=== PATIENT | female | born 1945 ===

== ENCOUNTER 2021-07-13 06:00 | Observation (INO) ==
[2021-07-13] MEDS ORDERED: ceFAZolin 1,000 MG VIAL ONE (06:43)
[2021-07-13] MEDS ORDERED: BUPIVACAINE MPF 0.25% 30 ML VIAL ONE (06:43)
[2021-07-13] MEDS ORDERED: TISSUE ADHESIVE 1 EACH APPLICATOR TOP ONE (06:43)
[2021-07-13] MEDS ORDERED: LIDOCAINE 1%/EPI INJ 20 ML VIAL ONE (06:43)
[2021-07-13] MEDS ORDERED: fentaNYL 100 MCG/2 ML VIAL ONE ×2 (06:48→08:53)
[2021-07-13] MEDS ORDERED: MIDAZOLAM 2 MG/2 ML VIAL ONE (06:48)
[2021-07-13] MEDS ORDERED: DEXAMETHASONE 4 MG/1 ML VIAL ONE (06:51)
[2021-07-13] MEDS ORDERED: ROPIVACAINE 0.5% 30 ML VIAL ONE (06:52)
[2021-07-13] MEDS ORDERED: LIDOCAINE 1% 5 ML VIAL ONE (06:52)
[2021-07-13] MEDS ORDERED: propofoL 200 MG/20 ML VIAL IV ONE (07:53)
[2021-07-13] MEDS ORDERED: ROCURONIUM 50 MG/5 ML VIAL IV ONE (07:53)
[2021-07-13] MEDS ORDERED: LIDOCAINE 2% 5 ML VIAL ONE (07:53)
[2021-07-13] MEDS ORDERED: SEVOFLURANE 1 UNIT/15 MINUTE INH ONE ×10 (07:53→10:39)
[2021-07-13] MEDS ORDERED: PHENYLEPHRINE 1 MG/10 ML SYRINGE IV ONE (08:53)
[2021-07-13] MEDS ORDERED: ONDANSETRON 4 MG/2 ML VIAL ONE ×2 (10:03→10:33)
[2021-07-13] MEDS: LACTATED RINGERS 1,000 ML IV SCH (10:30)
[2021-07-13] MEDS ORDERED: ONDANSETRON 4 MG/2 ML VIAL IV PRN (10:36)
[2021-07-13] MEDS ORDERED: HYDROmorphone 2 MG/1 ML VIAL IV PRN (10:36)
[2021-07-13] MEDS ORDERED: ACETAMINOPHEN 325 MG TABLET PO PRN (12:18)
[2021-07-13] MEDS: HYDROmorphone 2 MG/1 ML VIAL IV PRN ×3 (12:38→23:14)
[2021-07-13] MEDS: ceFAZolin 2,000 MG/50 ML DUPLEX IV SCH (18:00)
[2021-07-13] MEDS: ONDANSETRON 4 MG/2 ML VIAL IV PRN (21:25)
[2021-07-14] MEDS: ceFAZolin 2,000 MG/50 ML DUPLEX IV SCH (02:38)
[2021-07-14] MEDS: HYDROmorphone 2 MG/1 ML VIAL IV PRN (05:30)
[2021-07-14 05:54] LABS: Basophils % 0.2 % (0.0-0.8); Eosinophils % 0.6 % (0.00-10.9); Hematocrit 26.8 VOL% (35.7-47.0); Hemoglobin 8.3 GM/DL (12.0-16.0); Immature Granulocytes % 0.2 %; Immature Granulocytes Absolute 0.01 #; Lymphocytes % 15.1 % (21.3-54.2); Mean Corpuscular Volume 103.5 FL (87-102); Mean Platelet Volume 10.1 FL (9.6-12.0); Monocytes % 13.4 % (1.7-12.7); Neutrophils % 70.5 % (38.7-73.9); Platelet Count 198 T/CUMM (130-400); Red Blood Count 2.59 MC/CUMM (3.8-5.5); Red Cell Distribution Width 15.8 % (9.3-17.3); White Blood Count 6.5 T/CUMM (4-12)
[2021-07-14 06:24] LABS: Calcium 8.6 MG/DL (8.5-10.1); Osmolality,Calculated 284.3 MOS/KG (273-304); Potassium 4.1 MMOL/L (3.5-5.1)
[2021-07-14] MEDS: ONDANSETRON 4 MG/2 ML VIAL IV PRN ×2 (08:59→10:31)
[2021-07-14] MEDS ORDERED: CALCIUM (CARBONATE)/VITAMIN D 500 MG-200 UNIT TABLET PO SCH (09:00)
[2021-07-14] MEDS: ASPIRIN CHEW 81 MG TABLET PO SCH (10:21)
[2021-07-14] MEDS: MAGNESIUM OXIDE 400 MG TABLET PO SCH (10:21)
[2021-07-14] MEDS: hydroCHLOROthiazide 25 MG TABLET PO SCH ×2 (10:21→21:37)
[2021-07-14] MEDS: POTASSIUM CHLORIDE 10 MEQ TABLET PO SCH ×2 (10:21→21:37)
[2021-07-14] MEDS: GABAPENTIN 100 MG CAPSULE PO SCH ×3 (10:21→21:36)
[2021-07-14] MEDS: SIMVASTATIN 20 MG TABLET PO SCH (10:22)
[2021-07-14] MEDS: LOSARTAN 50 MG TABLET PO SCH (10:23)
[2021-07-14] MEDS: MULTIVITAMIN (BEROCCA) TABLET PO SCH (10:23)
[2021-07-14] MEDS: LACTATED RINGERS 1,000 ML IV SCH (17:13)
[2021-07-14] MEDS ORDERED: amLODIPine 10 MG TABLET PO SCH (19:00)
[2021-07-14] MEDS ORDERED: MONTELUKAST 10 MG TABLET PO SCH (21:00)
[2021-07-14] MEDS: CALCIUM (CARBONATE)/VITAMIN D 600 MG-400 UNIT TABLET PO SCH (21:36)
[2021-07-15 07:54] LABS: Basophils % 0.3 % (0.0-0.8); Eosinophils # 0.3 10*3/uL (0.0-0.87); Eosinophils % 4.1 % (0.00-10.9); Hemoglobin 6.8 GM/DL (12.0-16.0); Immature Granulocytes % 0.3 %; Immature Granulocytes Absolute 0.02 #; Lymphocytes # 0.8 10*3/uL (1.4-4.0); Lymphocytes % 11.3 % (21.3-54.2); Mean Corpuscular HGB Conc 30.9 GM/DL (32-36); Mean Corpuscular Volume 102.3 FL (87-102); Mean Platelet Volume 10.2 FL (9.6-12.0); Monocytes % 9.3 % (1.7-12.7); Neutrophils % 74.7 % (38.7-73.9); Platelet Count 175 T/CUMM (130-400); Red Blood Count 2.15 MC/CUMM (3.8-5.5); Red Cell Distribution Width 15.7 % (9.3-17.3); White Blood Count 6.8 T/CUMM (4-12)
[2021-07-15] MEDS: POTASSIUM CHLORIDE 10 MEQ TABLET PO SCH (08:56)
[2021-07-15] MEDS: ASPIRIN CHEW 81 MG TABLET PO SCH (08:56)
[2021-07-15] MEDS: LOSARTAN 50 MG TABLET PO SCH (08:57)
[2021-07-15] MEDS: GABAPENTIN 100 MG CAPSULE PO SCH ×2 (08:57→14:54)
[2021-07-15] MEDS: hydroCHLOROthiazide 25 MG TABLET PO SCH (08:57)
[2021-07-15] MEDS: MAGNESIUM OXIDE 400 MG TABLET PO SCH (08:57)
[2021-07-15] MEDS: SIMVASTATIN 20 MG TABLET PO SCH (08:57)
[2021-07-15] MEDS: CALCIUM (CARBONATE)/VITAMIN D 600 MG-400 UNIT TABLET PO SCH (08:57)
[2021-07-15] MEDS ORDERED: SODIUM CHLORIDE 0.9% 1,000 ML IV PRN (08:58)
[2021-07-15] MEDS: MULTIVITAMIN (BEROCCA) TABLET PO SCH (09:03)
[2021-07-15 15:57] LABS: Basophils % 0.4 % (0.0-0.8); Eosinophils # 0.3 10*3/uL (0.0-0.87); Eosinophils % 4.5 % (0.00-10.9); Hematocrit 28.1 VOL% (35.7-47.0); Immature Granulocytes % 0.4 %; Immature Granulocytes Absolute 0.03 #; Lymphocytes # 0.9 10*3/uL (1.4-4.0); Lymphocytes % 13.2 % (21.3-54.2); Mean Corpuscular HGB Conc 31.3 GM/DL (32-36); Mean Corpuscular Volume 102.6 FL (87-102); Mean Platelet Volume 10.2 FL (9.6-12.0); Monocytes % 9.8 % (1.7-12.7); Neutrophils % 71.7 % (38.7-73.9); Platelet Count 186 T/CUMM (130-400); Red Blood Count 2.74 MC/CUMM (3.8-5.5); Red Cell Distribution Width 16.4 % (9.3-17.3)
[2021-07-15 15:59] LABS: Hemoglobin 8.8 GM/DL (12.0-16.0)
[2021-07-15 16:19] VITALS: BP 129/52
== END 2021-07-15 17:45 | disposition home or self-care (01) ==
LOC: N.OR 06:00 → N.3E 06:00 → N.SDSINP 06:34 → N.3E 11:41
PROVIDERS: ADMIT Student in an Organized Health Care Education/Training Program; ATTEND Student in an Organized Health Care Education/Training Program